=== PATIENT | female | born 1970 | race Hispanic/Latino ===

== ENCOUNTER 2022-12-06 18:29 | Emergency (ER) | payer SELFPAY ==
[~2022-12-06] VITALS: Ht 175.3 cm; Wt 108.9 kg
[2022-12-06] MEDS ORDERED: DOXYCYCLINE HY100 MG PO (19:34)
[2022-12-06 19:42] VITALS: BP 156/100
== END 2022-12-06 19:43 | disposition home or self-care (01) ==
LOC: ER 18:36
DX: L08.9 Local infection of the skin and subcutaneous tissue, unspecified (principal); W57.XXXA Bitten or stung by nonvenomous insect and other nonvenomous arthropods, initial encounter; Y92.89 Other specified places as the place of occurrence of the external cause
CPT/HCPCS: 99282

== ENCOUNTER → 2024-07-25 | Day surgery (SDC) | payer OTHER ==
[2024-07-24 12:41] LABS: ANION GAP 14.5 mmol/L (8-16); CALCIUM 9.3 mg/dL (8.4-10.2); CREATININE, SERUM 1.1 mg/dL (0.57-1.11); POTASSIUM 4.5 mmol/L (3.5-5.1)
[~2024-07-25] MED LIST: ACETAMINOPHEN 1000 MG/100 ML IV ONE; ASPIRIN81 MG PO; BUPIVACAINE HCL 0.5% INJ 30 ML VIAL INJ ONE; CARVEDILOL12.5 MG PO; DOXYCYCLINE HY100 MG PO; GLIPIZIDE5 MG PO; HYDROCHLOROTHIA25 MG PO; JANUMET 50-1,01 EACH PO; KETAMINE HCL INJ 50 MG/ML 10 ML VIAL ONE; LABETALOL HCL 5 MG/ML 20ML VIAL ONE; LIDOCAINE HCL 2% LOCAL INJ 5 ML SDV VIAL INJ ONE; LIPITOR20 MG PO; METOCLOPRAMIDE HCL 10 MG/2ML VIAL ONE; MIDAZOLAM HCL 2 MG/2 ML VIAL ONE; MUPIROCIN 2% OINT 22 GM TUBE ONE; NEURONTIN400 MG PO; OMEPRAZOLE40 MG PO; ONDANSETRON HCL INJ 2MG/ML 2ML 2 MG/ML VIAL ONE; OZEMPIC2 MG/0.75; PAROXETINE HCL10 MG PO; PROPOFOL IV EMULSION 10 MG/ML 20 ML VIAL ONE; TRAZODONE HCL100 MG PO; VENTOLIN HFA18 GM INH; VITAMIN D31 ML; ZESTRIL40 MG PO
[2024-07-25] MEDS: CEFAZOLIN SODIUM 2 GM ONE (11:17)
[2024-07-25] MEDS: LACTATED RINGER'S 1,000 ML ONE (11:19)
[2024-07-25 13:16] VITALS: TEMP 97.7
[2024-07-25 14:30] VITALS: BP 151/85; PULSE 76; RESP 16; O2SAT 97
== END | disposition home or self-care (01) ==
LOC: OR 10:21
PROVIDERS: ATTEND Podiatrist Foot & Ankle Surgery
DX: M20.31 Hallux varus (acquired), right foot (principal); M20.41 Other hammer toe(s) (acquired), right foot; I10 Essential (primary) hypertension; E78.5 Hyperlipidemia, unspecified; I69.854 Hemiplegia and hemiparesis following other cerebrovascular disease affecting left non-dominant side; K21.9 Gastro-esophageal reflux disease without esophagitis; E11.9 Type 2 diabetes mellitus without complications; E66.01 Morbid (severe) obesity due to excess calories; F41.9 Anxiety disorder, unspecified; F32.A Depression, unspecified; Z88.1 Allergy status to other antibiotic agents; Z01.810 Encounter for preprocedural cardiovascular examination; Z01.812 Encounter for preprocedural laboratory examination; Z79.82 Long term (current) use of aspirin; Z79.84 Long term (current) use of oral hypoglycemic drugs; Z79.85 Long-term (current) use of injectable non-insulin antidiabetic drugs; Z79.899 Other long term (current) drug therapy
CPT/HCPCS: 28285 ×3; 28755; 36415; 80048; 93005; C1713; C1762; J0131; J0690; J2003; J2405; J2704; J2765; J3490; J7121; 76000; J2250

== ENCOUNTER → 2024-09-04 | Day surgery (SDC) | payer OTHER ==
[2024-08-30 13:53] LABS: ANION GAP 13.5 mmol/L (8-16); CALCIUM 9.7 mg/dL (8.4-10.2); CREATININE, SERUM 0.82 mg/dL (0.57-1.11); POTASSIUM 4.5 mmol/L (3.5-5.1)
[~2024-09-04] MED LIST changes: -ACETAMINOPHEN 1000 MG/100 ML IV ONE; -BUPIVACAINE HCL 0.5% INJ 30 ML VIAL INJ ONE; +EPHEDRINE SULFATE INJ 50 MG/ML VIAL ONE; +FAMOTIDINE 20 MG/2 ML VIAL IV ONE; +FENTANYL CITRATE/PF 100MCG/2 ML INJ ONE; -KETAMINE HCL INJ 50 MG/ML 10 ML VIAL ONE; -LABETALOL HCL 5 MG/ML 20ML VIAL ONE; -LIDOCAINE HCL 2% LOCAL INJ 5 ML SDV VIAL INJ ONE; -METOCLOPRAMIDE HCL 10 MG/2ML VIAL ONE; -MUPIROCIN 2% OINT 22 GM TUBE ONE; -PROPOFOL IV EMULSION 10 MG/ML 20 ML VIAL ONE
[2024-09-04] MEDS: LACTATED RINGER'S 1,000 ML ONE (13:44)
[2024-09-04] MEDS: HYDROCODONE/APAP 5MG-325MG TAB ONE (15:08)
[2024-09-04 15:15] VITALS: TEMP 97.2
[2024-09-04 15:35] VITALS: BP 142/82; PULSE 68; RESP 16; O2SAT 98
== END | disposition home or self-care (01) ==
LOC: OR 11:04
PROVIDERS: ATTEND Podiatrist Foot & Ankle Surgery
DX: S92.351A Displaced fracture of fifth metatarsal bone, right foot, initial encounter for closed fracture (principal); E11.9 Type 2 diabetes mellitus without complications; G62.9 Polyneuropathy, unspecified; I10 Essential (primary) hypertension; E78.5 Hyperlipidemia, unspecified; E66.01 Morbid (severe) obesity due to excess calories; M54.9 Dorsalgia, unspecified; F41.9 Anxiety disorder, unspecified; F32.A Depression, unspecified; X58.XXXA Exposure to other specified factors, initial encounter; Z88.1 Allergy status to other antibiotic agents; Z01.812 Encounter for preprocedural laboratory examination; Z79.82 Long term (current) use of aspirin; Z79.84 Long term (current) use of oral hypoglycemic drugs; Z79.85 Long-term (current) use of injectable non-insulin antidiabetic drugs; Z79.899 Other long term (current) drug therapy; Z86.73 Personal history of transient ischemic attack (TIA), and cerebral infarction without residual deficits
CPT/HCPCS: 28485; 36415; 76000; 80048; C1713 ×3; C1734; J0690; J2250; J2405; J3010; J7121

== ENCOUNTER 2024-11-17 19:04 | Emergency (ER) | payer OTHER ==
[~2024-11-17] VITALS: Ht 175.3 cm; Wt 117.9 kg
[~2024-11-17 19:04] MED LIST changes: -EPHEDRINE SULFATE INJ 50 MG/ML VIAL ONE; -FAMOTIDINE 20 MG/2 ML VIAL IV ONE; -FENTANYL CITRATE/PF 100MCG/2 ML INJ ONE; -MIDAZOLAM HCL 2 MG/2 ML VIAL ONE; -ONDANSETRON HCL INJ 2MG/ML 2ML 2 MG/ML VIAL ONE
[2024-11-17] MEDS ORDERED: IBUPROFEN 600 MG TAB PO STA (19:23)
[2024-11-17] MEDS: KETOROLAC TROMETHAMINE 30 MG/ML VIAL IV STA (19:48)
[2024-11-17] MEDS: PREDNISONE 20 MG TAB PO ONE (19:49)
[2024-11-17] MEDS: ACETAMINOPHEN 325 MG TAB PO ONE (19:50)
[2024-11-17] MEDS: GUAIFENESIN 200 MG/10 ML UDC PO ONE (20:13)
[2024-11-17] MEDS: SODIUM CHLORIDE 0.9% 1000ML 1,000 ML IV ONE (20:51)
[2024-11-17] MEDS: ALBUTEROL/IPRATROPIUM 3 ML NEB NEB ONE (20:51)
[2024-11-17 21:11] VITALS: PULSE 88; RESP 16; TEMP 98
[2024-11-17] MEDS ORDERED: VENTOLIN HFA18 GM INH (21:41)
[2024-11-17] MEDS ORDERED: PROMETHAZINE-D118 ML PO (21:43)
[2024-11-17] MEDS ORDERED: IOPAMIDOL 370 MG/ML 100 ML INFUS..BTL INJ ONE (21:45)
[2024-11-17 22:12] VITALS: BP 164/76; PULSE 102; RESP 18; TEMP 97.9; O2SAT 99
== END 2024-11-17 22:24 | disposition home or self-care (01) ==
LOC: FSED 19:19
DX: R06.02 Shortness of breath (principal); J40 Bronchitis, not specified as acute or chronic; R05.9 Cough, unspecified; E11.65 Type 2 diabetes mellitus with hyperglycemia; I10 Essential (primary) hypertension; Z11.52 Encounter for screening for COVID-19
CPT/HCPCS: 0223U; 71046; 80048; 82553; 83518 ×2; 83880; 84484; 85025; 87400; 99284; J1885; J7030; J7512; Q9967; 93005

== ENCOUNTER → 2025-04-25 | Day surgery (SDC) | payer OTHER ==
[~2025-04-25] MED LIST changes: +ACETAMINOPHEN 1000 MG/100 ML 100 ML IV ONE; +BUPIVACAINE 0.5%/EPI 30 ML SDV INJ ONE; +DEXAMETHASONE SOD PHOS INJ 4 MG/ML SDV ONE; +EPHEDRINE SULFATE INJ 50 MG/ML VIAL ONE; +FAMOTIDINE 20 MG/2 ML VIAL IV ONE; +FENTANYL CITRATE/PF 100MCG/2 ML INJ ONE; +LIDOCAINE HCL 2% LOCAL INJ 5 ML SDV VIAL INJ ONE; +MIDAZOLAM HCL 2 MG/2 ML VIAL ONE; +ONDANSETRON HCL INJ 2MG/ML 2ML 2 MG/ML VIAL ONE; +PROMETHAZINE-D118 ML PO; +PROPOFOL IV EMULSION 10 MG/ML 20 ML VIAL ONE; +SEVOFLURANE INHAL SOLN 250 ML PEN BTL ONE
[2025-04-25] MEDS: LACTATED RINGER'S 1,000 ML ONE (12:02)
[2025-04-25] MEDS: INSULIN REGULAR, HUMAN 100 UNIT/1 ML ONE (12:04)
[2025-04-25 15:30] VITALS: BP 151/89; PULSE 84; RESP 18; O2SAT 97
== END | disposition home or self-care (01) ==
LOC: OR 11:04
PROVIDERS: ATTEND Podiatrist Foot & Ankle Surgery
DX: S92.352A Displaced fracture of fifth metatarsal bone, left foot, initial encounter for closed fracture (principal); S86.312A Strain of muscle(s) and tendon(s) of peroneal muscle group at lower leg level, left leg, initial encounter; I10 Essential (primary) hypertension; E78.5 Hyperlipidemia, unspecified; E11.9 Type 2 diabetes mellitus without complications; Z79.84 Long term (current) use of oral hypoglycemic drugs; Z79.85 Long-term (current) use of injectable non-insulin antidiabetic drugs; E66.01 Morbid (severe) obesity due to excess calories; F41.8 Other specified anxiety disorders; X58.XXXA Exposure to other specified factors, initial encounter; Z86.73 Personal history of transient ischemic attack (TIA), and cerebral infarction without residual deficits; Z01.810 Encounter for preprocedural cardiovascular examination; Z79.899 Other long term (current) drug therapy
CPT/HCPCS: 36415; 76000; 82948; 88304; 88311; 93005; C1713; C1734; J0690; J1100; J1308; J2003; J2250; J2405